=== PATIENT | male | born 1950 | race Caucasian/White ===

== ENCOUNTER 2017-12-04 12:13 | Day surgery (SDC) | payer MEDICARE, OTHER ==
[~2017-12-04] VITALS: Ht 175.3 cm; Wt 97.5 kg
[~2017-12-04 12:13] MED LIST: ATENOLOL50 MG PO; BRAIN MIGHT-DH1 EACH PO; DOXYCYCLINE HY100 M3 PO; EFFER-K 10 MEQ10 MEQ PO; FLONASE2 SPRAY NS; GABAPENTIN300 MG PO; LEVOTHYROXINE100 MCG PO; LOVASTATIN40 MG PO; METHYLPREDNISOLO4 MG PO; MOBIC15 MG PO; NORVASC5 MG PO; PAPAYA1 EAC1 PO; PREDNISONE20 MG PO; PROAIR HFA8.5 GM INH; TESSALON PERLE100 MG PO; TESTOSTERO200 MG/1 M IM; TRIAMTERENE-HC1 EAC3 PO
[2017-12-04] MEDS ORDERED: ALEVE220 MG PO (12:34)
[2017-12-04] MEDS ORDERED: ADULT ASPIRIN R81 MG PO (12:40)
[2017-12-04] MEDS ORDERED: GLUCOPHAGE500 MG PO (12:40)
--- NOTE | 2017-12-04 14:12 | NUR ---
12/04/17 1412 Carina Delgado 1408 PATIENT ARRIVES TO PACU AWAKE, BUT DROWSY, ANSWERS QUESTIONS APPROPRIATELY, DENIES PAIN OR NAUSEA, BACK TO SLEEP. RESP EVEN AND UNLABORED, NC AT 3 LITERS.
--- NOTE | 2017-12-04 22:13 | OR ---
[facility] [address] [place], [place] [address] Signed DATE OF OPERATION: 12/04/2017 SURGEON: Madeline Momin MD PREOPERATIVE DIAGNOSES: 1. Episodic constipation. 2. Last colonoscopy normal in 2007. POSTOPERATIVE DIAGNOSIS: Small polyp of ileocecal valve (excised). PROCEDURE: Total colonoscopy to cecum with cold morcellation polypectomy x1. ANESTHESIA: Intravenous sedation, fentanyl 100 mcg, Versed 3 mg. INDICATION: This 67-year-old white man is a patient of Dr. Riccardo Moreno and has baseline issues of sleep apnea. He underwent colonoscopy in 2007, which was normal. He has had continued constipation in recent times, but no blood per rectum. He has no family history of colon cancer. He was admitted at this time to undergo colonoscopy. He understands the risks of bleeding, infection, and perforation. FINDINGS: The prep was good. Complete colonoscopy was undertaken to the cecum. There was a small polyp of the ileocecal valve, which was excised with cold morcellation technique. The remaining colon was normal. DESCRIPTION OF PROCEDURE: The patient was brought to the endoscopy suite and placed in lateral decubitus position and given intravenous sedation to the point of slurred speech and nystagmus. Digital rectal examination was normal. An Olympus video colonoscope was passed in the rectum and manipulated throughout the colon ultimately intubating the cecum itself. The ileocecal valve was irrigated and a small polyp was noted on the surface of it. It did not appear worrisome. It was excised with cold morcellation technique. The scope was then withdrawn and careful examination throughout the colon showed no sign of other abnormality, specifically no polyps, diverticular formation, colitis, or cancer. Retroflex view of the rectum was Electronically Signed By: MADELINE MOMIN MD 12/04/17 2213 PATIENT NAME: DORY FISCHER OPERATIVE REPORT DATE OF : 50 REPORT #: [id number] PHYSICIAN: MADELINE MOMIN MD PCP: Raj MORENO MD REPORT IS CONFIDENTIAL AND NOT TO BE RELEASED WITHOUT AUTHORIZATION [facility] [address] [place] [id number] Signed normal. The scope was removed. The patient was taken to recovery room in good condition. CONCLUDING DIAGNOSIS: Small polyp of the ileocecal valve. PLAN: Recommend repeat colonoscopy in 5 years if polyp proves to be adenomatous. I would recommend Citrucel 1 tablespoon daily for his constipation issues. He will return to the ongoing care of Dr. Moreno. MD SALAS Verdin/KASEYL /[id number] cc: Raj Moreno MD Copies: Raj MORENO MD ~ Electronically Signed By: MADELINE MOMIN MD 12/04/17 2213 PATIENT NAME: DORY FISCHER OPERATIVE REPORT DATE OF : 50 REPORT #: [id number] PHYSICIAN: MADELINE MOMIN MD PCP: Raj MORENO MD REPORT IS CONFIDENTIAL AND NOT TO BE RELEASED WITHOUT AUTHORIZATION
== END 2017-12-04 14:40 | disposition home or self-care (01) ==
LOC: OPS 12:13 → DS 12:13 → OPS 14:00
PROVIDERS: Surgery
PROC: 0DBC8ZX Excision of Ileocecal Valve, Via Natural or Artificial Opening Endoscopic, Diagnostic (ICD-10-PCS; principal; 2017-12-04 13:00)
DX: K63.5 Polyp of colon (principal); I10 Essential (primary) hypertension; E66.9 Obesity, unspecified; Z88.0 Allergy status to penicillin; Z88.1 Allergy status to other antibiotic agents; Z96.651 Presence of right artificial knee joint; Z98.890 Other specified postprocedural states; Z85.828 Personal history of other malignant neoplasm of skin; Z68.39 Body mass index [BMI] 39.0-39.9, adult; Z79.899 Other long term (current) drug therapy
CPT/HCPCS: 88305; 99153; G0500; J2250; J3010; J7120

== ENCOUNTER 2024-06-02 19:12 | Emergency (ER) | payer MEDICARE, OTHER ==
[~2024-06-02] VITALS: Ht 157.5 cm; Wt 104.9 kg
[~2024-06-02 19:12] MED LIST changes: +ADULT ASPIRIN R81 MG PO; +ALEVE220 MG PO; +ATENOLOL100 MG PO; -ATENOLOL50 MG PO; +ATORVASTATIN CA80 MG PO; +CATAPRES0.1 MG PO; +CEFPODOXIME PR200 MG PO; +COZAAR100 MG PO; +GLUCOPHAGE500 MG PO; +HYDROCHLOROTHIA25 MG PO; +K-TAB10 MEQ PO; +KLOR-CON 1010 MEQ PO; -LEVOTHYROXINE100 MCG PO; +LEVOTHYROXINE88 MCG PO; +METROCREAM45 GM TOP; +NORVASC10 MG PO; -NORVASC5 MG PO; +OXYCODON-ACETA1 EAC2 PO; +TRIAMCINOLONE A15 G2 TOP; +TYLENOL325 MG PO
[2024-06-02] MEDS ORDERED: ALBUTEROL/IPRATROPIUM 3 ML NEB INH ONE (19:30)
[2024-06-02] MEDS ORDERED: FUROSEMIDE 40 MG/4 ML VIAL IV ONE (19:30)
[2024-06-02 19:31] LABS: BASOPHILS 0.5 % (0-2); EOSINOPHILS 3.8 % (0-6); HEMATOCRIT 41.7 % (35.0-50.0); HEMOGLOBIN 13.6 g/dL (12.0-18.0); LYMPHOCYTES 27.4 % (24-44); MCH 26.1 (27-36); MCHC 32.5 g/dl (30-36); MCV 80.1 fl (81-99); MONOCYTES 6.9 % (0-12); NEUTROPHILS 61.4 % (39-80); PLATELET COUNT 178 K/uL (140-440); RBC 5.21 M/ul (4.3-5.7)
[2024-06-02 19:48] LABS: ALBUMIN 3.7 g/dL (3.4-5.0); ALBUMIN/GLOBULIN RATIO 0.95 (1.1-2.4); ANION GAP 14.4 (7-21); BILIRUBIN, TOTAL 0.4 ng/dL (0.2-1.0); CALCIUM 9.1 mg/dL (8.5-10.1); POTASSIUM 3.4 mmol/L (3.5-5.1); PROTEIN, TOTAL 7.6 g/dL (6.4-8.2)
[2024-06-02] MEDS ORDERED: ondansetron HCL 4 MG/2 ML VIAL IV ONE (21:45)
[2024-06-02 22:18] LABS: INFLUENZA B NAA NEGATIVE (NEGATIVE); RESPIRATORY SYNCYTIAL VIR NAA NEGATIVE (NEGATIVE)
[2024-06-02] MEDS ORDERED: LASIX20 MG PO (23:07)
[2024-06-02 23:30] VITALS: BP 101/78
--- NOTE | 2024-06-03 20:33 | EKG ---
[facility] [address] [place] [address] Signed Sinus rhythm with 1st degree AV block Otherwise normal ECG When compared with ECG of 23-FEB-2019 10:18, No significant change was found Confirmed by Rgoer Siegel MD () on 06/03/2024 8:32:54 PM Electronically Signed By: ROGER SIEGEL MD 06/03/242032 PATIENT NAME: DORY FISCHER INOCENCIA Electrocardiogram DATE OF : 50 PHYSICIAN: ROGER SIEGEL MD REPORT #: [id number] REPORT IS CONFIDENTIAL AND NOT TO BE RELEASED WITHOUT AUTHORIZATION
== END 2024-06-02 23:30 | disposition home or self-care (01) ==
LOC: ED 19:12
PROVIDERS: Family Medicine
DX: R06.02 Shortness of breath (principal); R79.89 Other specified abnormal findings of blood chemistry; I10 Essential (primary) hypertension; E11.9 Type 2 diabetes mellitus without complications; Z88.0 Allergy status to penicillin; Z88.1 Allergy status to other antibiotic agents; Z79.84 Long term (current) use of oral hypoglycemic drugs; Z79.890 Hormone replacement therapy; Z79.899 Other long term (current) drug therapy
CPT/HCPCS: 36415; 71045; 71260; 80053; 83880; 84484; 85025; 85379; 87502; 93005; 93010; 94640; 99285-25; J1940; J2405; Q9967; U0002

== ENCOUNTER 2024-08-12 12:23 | Emergency (ER) | payer MEDICARE, OTHER ==
[~2024-08-12] VITALS: Ht 157.5 cm; Wt 99.1 kg
[~2024-08-12 12:23] MED LIST changes: +LASIX20 MG PO
[2024-08-12] MEDS ORDERED: DOXYCYCLINE HYC20 MG PO (12:42)
[2024-08-12] MEDS ORDERED: METFORMIN HCL1000 MG PO (12:43)
[2024-08-12] MEDS ORDERED: TRIMETHOPRIM/SULFAMETHOXAZOLE 1 EA TAB PO ONE (13:00)
[2024-08-12] MEDS ORDERED: BACTRIM DS TAB1 EACH PO (13:11)
[2024-08-12 13:41] VITALS: BP 157/85
== END 2024-08-12 13:42 | disposition home or self-care (01) ==
LOC: ED 12:23
DX: L03.012 Cellulitis of left finger (principal); I10 Essential (primary) hypertension; E11.9 Type 2 diabetes mellitus without complications; Z88.0 Allergy status to penicillin; Z88.1 Allergy status to other antibiotic agents; Z79.899 Other long term (current) drug therapy; Z79.84 Long term (current) use of oral hypoglycemic drugs; Z79.890 Hormone replacement therapy
CPT/HCPCS: 10060; 99283-25; A9270

== ENCOUNTER 2025-07-25 01:00 | Emergency (ER) | payer MEDICARE, OTHER ==
[~2025-07-25] VITALS: Ht 157.5 cm; Wt 95.5 kg
[~2025-07-25 01:00] MED LIST changes: +BACTRIM DS TAB1 EACH PO; +DOXYCYCLINE HYC20 MG PO; +METFORMIN HCL1000 MG PO
[2025-07-25] MEDS ORDERED: INDAPAMIDE2.5 MG PO (01:13)
[2025-07-25] MEDS ORDERED: ALBUTEROL/IPRATROPIUM 3 ML NEB INH ONE (01:15)
[2025-07-25 01:17] LABS: BASOPHILS 0.3 % (0.2-1.2); EOSINOPHILS 1.2 % (0.8-7.0); LYMPHOCYTES 29.9 % (21.8-53.1); MCH 26.1 PG (25.7-32.2); MCHC 31.0 g/dL (32.3-36.5); MCV 84.1 fL (79.0-92.2); MONOCYTES 6.1 % (5.3-12.2); NEUTROPHILS 62.1 % (34.0-67.9); RBC 5.91 M/uL (4.63-6.08)
[2025-07-25] MEDS ORDERED: IRBESARTAN150 MG PO (01:18)
[2025-07-25 01:44] LABS: ALT (SGPT) 38.0 U/L (14-59); AST (SGOT) 21.0 U/L (15-37); GLOMERULAR FILTRATION RATE,EST 77.0 mL/min (>60); PROTEIN, TOTAL 7.5 g/dL (6.4-8.2); UREA NITROGEN 15.0 mg/dL (7-18)
[2025-07-25] MEDS ORDERED: methylPREDNISolone 4 MG HOME.PACK PO ONE (03:15)
[2025-07-25] MEDS ORDERED: ALBUTEROL SULFATE 8 GM HOME.PACK INH ONE (03:15)
[2025-07-25 03:39] VITALS: BP 134/76
--- NOTE | 2025-07-26 22:21 | EKG ---
[facility] [address] [facility] [place] [address] Signed Sinus rhythm with occasional premature ventricular complexes ST \T\ T wave abnormality, consider inferolateral ischemia Abnormal ECG When compared with ECG of 02-JUN-2024 19:35, premature ventricular complexes are now present T wave inversion now evident in Lateral leads Confirmed by Roger Siegel MD () on 07/26/2025 10:21:15 PM Electronically Signed By: ROGER SIEGEL MD 07/26/252220 PATIENT NAME: DORY FISCHER Electrocardiogram DATE OF : 50 PHYSICIAN: ROGER SIEGEL MD REPORT #: [id number] REPORT IS CONFIDENTIAL AND NOT TO BE RELEASED WITHOUT AUTHORIZATION
== END 2025-07-25 03:35 | disposition home or self-care (01) ==
LOC: ED 01:00
PROVIDERS: Family Medicine
DX: J98.01 Acute bronchospasm (principal); I10 Essential (primary) hypertension; E11.9 Type 2 diabetes mellitus without complications; G47.30 Sleep apnea, unspecified; Z79.899 Other long term (current) drug therapy; Z79.84 Long term (current) use of oral hypoglycemic drugs; Z88.0 Allergy status to penicillin; Z88.1 Allergy status to other antibiotic agents
CPT/HCPCS: 36415; 71045; 71260; 80053; 82803; 83880; 84484; 85025; 85379; 93005; 93010; 94640; 94664; 96374; 99285-25; J2919; Q9967